=== PATIENT | male | born 1955 | race Caucasian/White ===

== ENCOUNTER 2021-06-09 10:28 | Day surgery (SDC) | payer MEDICARE ==
[2021-06-05 11:27] VITALS: BMI 26.4
[~2021-06-09 10:28] MED LIST: LACTATED RINGERS 1,000 ML IV SCH; LIDOCAINE 1% (10MG/ML) FOR IV START INTRADERMA PRN
[2021-06-09 11:02] VITALS: RESP 16; TEMP 96.9
[2021-06-09] MEDS ORDERED: LIDOCAINE 1% INJ 10MG/ML (20 ML MDV) ONE (11:40)
[2021-06-09] MEDS ORDERED: PROPOFOL 10 MG/ML 20 ML VIAL IV ONE (11:40)
--- NOTE | 2021-06-09 11:41 | P.GSHP ---
History of Present Illness H&P Date: 06/09/21 Chief Complaint: Colon cancer screening Patient here today for colonoscopy. He has not had 1 previously. No bowel complaints. Family history of colon cancer in his daughter. Past Medical History Past Medical History: No Reported History History of Any Multi-Drug Resistant Organisms: None Reported Past Surgical History: No Surgical Hx Reported Past Anesthesia/Blood Transfusion Reactions: No Reported Reaction Smoking Status: Never smoker - Past Family History Daughter(s) Family Medical History: Cancer Father Family Medical History: Cancer Mother Family Medical History: Cancer Medications and Allergies Home Medications Medication Instructions Recorded Confirmed Type Vitamin D(Dose Unknown) 1 tab PO DAILY 06/05/21 06/09/21 History Allergies Allergy/AdvReac Type Severity Reaction Status Date / Time No Known Allergies Allergy Verified 06/05/21 11:20 Surgical - Exam Vital Signs Temp Pulse Resp BP Pulse Ox 96.9 F L 65 16 141/85 99 06/09/21 10:56 06/09/21 10:56 06/09/21 10:56 06/09/21 10:56 06/09/21 10:56 Physical exam: General: Well-developed, well-nourished HEENT: Normocephalic, sclerae nonicteric Abdomen: Nontender, nondistended Extremities: No edema Neuro: Alert and oriented Assessment and Plan (1) Colon cancer screening Narrative/Plan: Proceed with colonoscopy at this time Current Visit: Yes Status: Acute Code(s): Z12.11 - ENCOUNTER FOR SCREENING FOR MALIGNANT NEOPLASM OF COLON SNOMED Code(s): 276489735
--- NOTE | 2021-06-09 11:53 | P.PCN ---
Date of Procedure: 06/09/21 Procedure(s) Performed: PREOPERATIVE DIAGNOSIS: Colon cancer screening, family history of colon cancer POSTOPERATIVE DIAGNOSIS: Normal exam PROCEDURE: Colonoscopy ANESTHESIA: MAC SURGEON: Leo Sosa M.D. SPECIMENS: None ENDOSCOPIC PROCEDURE: The patient was placed on the endoscopy table in the left decubitus position. The Olympus colonoscope was inserted into the anus and passed under direct visualization to the base of the cecum. The appendiceal orifice was visualized. From that point the scope was slowly withdrawn inspecting all surfaces carefully. There were no neoplastic inflammatory or polypoid lesions throughout the cecum, ascending, transverse, descending, sigmoid and rectum. There was no visible diverticulosis noted. Digital rectal examination was normal. The patient was taken to the recovery room in stable condition per anesthesia guidelines. RECOMMENDATIONS: Resume diet. Follow colonoscopy in 5 years.
[2021-06-09 12:17] VITALS: BP 131/81; PULSE 55
== END 2021-06-09 12:39 | disposition home or self-care (01) ==
LOC: ORWHC2ENDO 10:28
PROVIDERS: ATTEND Surgery
DX: Z12.11 Encounter for screening for malignant neoplasm of colon (principal); Z80.0 Family history of malignant neoplasm of digestive organs
CPT/HCPCS: J2001; J2704; G0105

== ENCOUNTER → 2021-07-09 | Outpatient (CLI) | payer MEDICARE ==
--- NOTE | 2021-07-09 11:44 | CT ---
CT urogram with and without contrast HISTORY: Hematuria Helical acquisition obtained pre- and postadministration of intravenous contrast, 100 cc Isovue-300 I V through the abdomen and pelvis. Automated exposure control for dose reduction. No comparisons The lung bases are clear, there is no pleural or pericardial effusion. ABDOMEN: The left kidney shows multiple large associated cysts, at least one of the cysts at the lowe r pole level shows a dense appearance measuring approximately 1 cm in size, additional dense lesion p resent at the midpole, axial image #58 measures approximately 13 mm. The upper pole cyst shows a mult ilocular appearance, possible crescentic calcification is then anteriorly on axial image 54, there ar e likely associated septations, the large cyst at the upper pole measures approximately 13.6 cm in an terior to posterior dimension. There is no hydronephrosis bilaterally. Right kidney also shows some a ssociated cortical cysts, largest the lower pole measures approximately 4.3 cm, there is no evident r enal collecting system or ureteral calcification present. No hydronephrosis. Parapelvic cysts also no lupe within the left kidney. Some deformity of the collecting system is present due to local mass effe ct. The ureters show normal course and caliber. Urinary bladder is within normal limits. No evident p elvic adenopathy. Liver shows a small probable cystic focus, axial image 15 of series 5, subcentimeter in size. Gallbla dder is normal. No evident adrenal mass. Pancreas and spleen within normal limits. There is no pneumo peritoneum, retroperitoneal adenopathy, or ascites. Prostate shows some probable associated calcification. No evident bowel obstruction. Degenerative dis c and facet arthropathy changes are present in the visualized spine. IMPRESSION: Multiple cysts associated primarily with the left kidney, some of these likely are protei naceous cysts, follow-up can be performed to assess for stability
== END | disposition home or self-care (01) ==
LOC: RADCTMAIN 07:57
PROVIDERS: ATTEND Family Medicine
DX: N28.1 Cyst of kidney, acquired (principal); R31.9 Hematuria, unspecified
CPT/HCPCS: 82565; 84520; 74178; 36415; 74400; Q9967